=== PATIENT | male | born 1950 | race Two or more races ===

== ENCOUNTER 2024-06-08 22:05 | Inpatient (IN) | payer OTHER ==
[~2024-06-08] VITALS: Ht 175.3 cm; Wt 84.7 kg
[2024-06-08 23:02] LABS: Basophils # (auto) 0.1 10 ^3/uL (0-0.2); Basophils % (auto) 0.8 % (0.0-2.0); Eosinophils # (auto) 0.4 10 ^3/uL (0-0.8); Eosinophils % (auto) 4.8 % (0.0-7.0); Hematocrit 41.6 % (41.0-53.0); Hemoglobin 13.9 g/dL (13.5-17.5); Lymphocytes # (auto) 1.1 10 ^3/uL (0.4-5.4); Lymphocytes % (auto) 12.5 % (10.0-50.0); Mean Corpuscular Hemoglobin 30.9 pg (28.0-32.0); Mean Corpuscular Hgb Conc. 33.4 g/dL (32.0-36.0); Mean Corpuscular Volume 92.3 fL (80.0-100.0); Monocytes % (auto) 11.7 % (0.0-12.0); Neutrophils # (auto) 6.3 10 ^3/uL (1.6-8.6); Neutrophils % (auto) 70.2 % (37.0-80.0); Platelet Count (auto) 308 10^3/uL (140-450); Red Blood Cells 4.51 10^6/uL (4.5-5.90); Red Cell Distribution Width 14.4 % (11.8-14.3); White Blood Cell 8.9 10^3/uL (4.4-10.8)
[2024-06-08 23:17] LABS: INR 1.02 (0.9-1.15); Partial Thromboplastin Time 26.8 SEC (24.5-34.5); Prothrombin Time 10.8 sec (9.3-11.8)
[2024-06-08 23:19] LABS: Alanine Aminotransferase 21 U/L (7-40); Albumin 3.9 g/dL (3.2-4.8); Alkaline Phosphatase 63 U/L (46-116); Anion Gap 8 (5-15); Aspartate Aminotransferase 16 U/L (13-40); BUN/Creatinine Ratio 17.2 (10.0-20.0); Bilirubin, Total 0.3 mg/dL (0.2-1.0); Blood Urea Nitrogen 46 mg/dL (9-23); Calcium 9.2 mg/dL (8.7-10.4); Carbon Dioxide 22 mmol/L (20-31); Chloride 108 mmol/L (98-107); Glucose 223 mg/dL (74-106); Potassium 4.2 mmol/L (3.5-5.1); Sodium 138 mmol/L (136-145); Total Protein 6.5 g/dL (5.7-8.2)
[2024-06-08] MEDS: IOHEXOL 350 MG/ML 100ML IJ ONE (23:19)
[2024-06-08 23:30] VITALS: PULSE 66; RESP 25; O2SAT 97
[2024-06-09] VITALS (8 sets, daily range): BP systolic 111–152; BP diastolic 68–88; PULSE 64–96; RESP 17–19; TEMP 97.5–98.2; O2SAT 93–97
[2024-06-09] MEDS: CLINDAMYCIN 900MG IV 50 ML IV ONE (03:18)
[2024-06-09] MEDS ORDERED: ACETAMINOPHEN 325 MG TAB PO PRN (03:30)
[2024-06-09] MEDS ORDERED: ONDANSETRON HCL 4 MG/2 ML VIAL IV PRN (03:30)
[2024-06-09] MEDS ORDERED: DEXTROSE (50%) 50ML SYRG IV PRN (03:30)
[2024-06-09] MEDS ORDERED: MORPHINE SULFATE INJ 2 MG/ml SYRG IV PRN (03:30)
[2024-06-09] MEDS ORDERED: NITROGLYCERIN 0.4 MG SL TAB SL PRN (03:30)
[2024-06-09] MEDS ORDERED: TEMAZEPAM 15 MG CAP PO PRN (03:30)
[2024-06-09] MEDS: ACCU-CHEK COMFORT CURVE STRIP VI SCH (06:19)
[2024-06-09] MEDS: InsuLIN REG 1unit/0.01ml Soln (100units/ml) SC SCH (06:22)
[2024-06-09 09:50] LABS: Basophils # (auto) 0.1 10 ^3/uL (0-0.2); Basophils % (auto) 0.5 % (0.0-2.0); Eosinophils # (auto) 0.2 10 ^3/uL (0-0.8); Eosinophils % (auto) 2.1 % (0.0-7.0); Hematocrit 46.1 % (41.0-53.0); Hemoglobin 15.3 g/dL (13.5-17.5); Lymphocytes # (auto) 1.6 10 ^3/uL (0.4-5.4); Lymphocytes % (auto) 14.5 % (10.0-50.0); Mean Corpuscular Hemoglobin 30.7 pg (28.0-32.0); Mean Corpuscular Hgb Conc. 33.2 g/dL (32.0-36.0); Mean Corpuscular Volume 92.4 fL (80.0-100.0); Monocytes % (auto) 9.1 % (0.0-12.0); Neutrophils # (auto) 8.3 10 ^3/uL (1.6-8.6); Neutrophils % (auto) 73.8 % (37.0-80.0); Nucleated Red Blood Cells % 0.3 %; Platelet Count (auto) 317 10^3/uL (140-450); Red Blood Cells 4.98 10^6/uL (4.5-5.90); Red Cell Distribution Width 14.6 % (11.8-14.3); White Blood Cell 11.3 10^3/uL (4.4-10.8)
[2024-06-09 09:56] LABS: Chloride 106 mmol/L (98-107); Potassium 4.1 mmol/L (3.5-5.1); Sodium 139 mmol/L (136-145)
[2024-06-09 09:57] LABS: Anion Gap 6 (5-15); Calcium 9.9 mg/dL (8.7-10.4); Carbon Dioxide 27 mmol/L (20-31)
[2024-06-09 10:02] LABS: BUN/Creatinine Ratio 18.1 (10.0-20.0); Blood Urea Nitrogen 45 mg/dL (9-23); Glucose 177 mg/dL (74-106); Triglycerides 201 mg/dL (< 150)
[2024-06-09] MEDS ORDERED: GAB100C PO (10:02)
[2024-06-09] MEDS ORDERED: METO25TA93 PO (10:02)
[2024-06-09] MEDS ORDERED: BACL10TA PO (10:02)
[2024-06-09] MEDS ORDERED: METF-370 PO (10:02)
[2024-06-09 10:03] LABS: LDL Cholesterol 80 mg/dL (< 100)
[2024-06-09] MEDS ORDERED: ATOR40TA52 PO (10:03)
[2024-06-09] MEDS ORDERED: ASPI1TAB20 PO (10:03)
[2024-06-09 10:04] LABS: Cholesterol 153 mg/dL (< 200); HDL Cholesterol 45 mg/dL (40-59)
[2024-06-09] MEDS ORDERED: CIPR500T4 PO (10:04)
[2024-06-09] MEDS ORDERED: HYDR25TA5 PO (10:04)
[2024-06-09] MEDS ORDERED: CLOP75TA70 PO (10:04)
[2024-06-09] MEDS ORDERED: ROSU20TA56 PO (10:04)
[2024-06-09 10:31] LABS: Phosphorus 3.9 mg/dL (2.4-5.1)
[2024-06-09 10:36] LABS: INR 1.01 (0.9-1.15); Partial Thromboplastin Time 27.6 SEC (24.5-34.5); Prothrombin Time 10.7 sec (9.3-11.8)
[2024-06-09] MEDS: CLOPIDOGREL BISULFATE 75 MG TAB PO SCH (10:53)
[2024-06-09] MEDS: CIPROFLOXACIN HCL 500 MG TAB PO SCH (10:53)
[2024-06-09] MEDS: ASPirin 81 mg TAB PO SCH (10:53)
[2024-06-09] MEDS: hydroCHLOROthiazide 25 MG TAB PO SCH (10:54)
[2024-06-09] MEDS: METOPROLOL TARTRATE 25 MG TAB PO SCH (10:54)
[2024-06-09 12:44] LABS: Urine Bacteria None Seen /hpf (None Seen)
[2024-06-09 13:05] LABS: Urine Blood 1+ /uL (Negative); Urine Clarity Clear (Clear); Urine Color Light-Yellow (Yellow); Urine Protein, UAD 2+ (Negative); Urine Specific Gravity 1.034 (1.001-1.035); Urine Urobilinogen Normal (Negative); Urine WBC 95 /hpf (0 - 3)
[2024-06-09 13:16] LABS: Amphetamine Screen, Urine Pos (NEGATIVE); Barbiturate Scree,Urine Neg (NEGATIVE); Benzodiazephine Screen, Urine Neg (NEGATIVE); Cocaine Screen, Urine Neg (NEGATIVE)
[2024-06-09 13:18] LABS: Cannabinoid Screen, Urine Neg (NEGATIVE); Opiate Scree,Urine Neg (NEGATIVE); Phencyclidine Screen, Urine Neg (NEGATIVE)
[2024-06-09 13:31] LABS: Creatinine, Urine 80.41 mg/dL (30.0-125.0); Protein, Urine 126.2 mg/dL (1-14)
[2024-06-09 13:34] LABS: Creatinine, Urine 80.79 mg/dL (30.0-125.0); Urine Protein/Creatinine Ratio 1.56
[2024-06-09] MEDS: SODIUM CHLORIDE 0.9% 1,000 ML IV SCH (15:35)
[2024-06-09] MEDS: ATORVASTATIN 20 MG TAB PO SCH (21:06)
[2024-06-09] MEDS ORDERED: ATORVASTATIN 20 MG TAB PO SCH (22:00)
[2024-06-10 01:00] VITALS: BP 140/76; PULSE 69; RESP 18; TEMP 97.7; O2SAT 95
[2024-06-10 06:00] LABS: Chloride 107 mmol/L (98-107); Potassium 3.6 mmol/L (3.5-5.1); Sodium 140 mmol/L (136-145)
[2024-06-10 06:01] LABS: Anion Gap 5 (5-15); Calcium 9.7 mg/dL (8.7-10.4); Carbon Dioxide 28 mmol/L (20-31)
[2024-06-10 06:06] LABS: BUN/Creatinine Ratio 17.9 (10.0-20.0); Blood Urea Nitrogen 37 mg/dL (9-23); Glucose 183 mg/dL (74-106)
[2024-06-10 08:05] VITALS: PULSE 71
[2024-06-10 09:00] VITALS: BP 149/68; PULSE 62; RESP 17; TEMP 97.6; O2SAT 96
[2024-06-10 13:49] VITALS: BP 130/79; PULSE 96; RESP 18; TEMP 36.4; O2SAT 96
== END 2024-06-10 14:30 | disposition home or self-care (01) | DRG 917 ==
LOC: EDBD 22:05 → ER 22:05 → TELE 06-09 03:25 → TELE-E-ADS 06-09 05:45 → TELE-EAST 06-09 07:17
PROVIDERS: ADMIT Nurse Practitioner; ATTEND Nurse Practitioner Acute Care
DX: T40.411A Poisoning by fentanyl or fentanyl analogs, accidental (unintentional), initial encounter (principal); G92.8 Other toxic encephalopathy; N17.0 Acute kidney failure with tubular necrosis; N39.0 Urinary tract infection, site not specified; I69.354 Hemiplegia and hemiparesis following cerebral infarction affecting left non-dominant side; T43.621A Poisoning by amphetamines, accidental (unintentional), initial encounter; J32.9 Chronic sinusitis, unspecified; S00.03XA Contusion of scalp, initial encounter; W07.XXXA Fall from chair, initial encounter; E11.51 Type 2 diabetes mellitus with diabetic peripheral angiopathy without gangrene; I12.9 Hypertensive chronic kidney disease with stage 1 through stage 4 chronic kidney disease, or unspecified chronic kidney disease; E11.22 Type 2 diabetes mellitus with diabetic chronic kidney disease; I25.10 Atherosclerotic heart disease of native coronary artery without angina pectoris; N18.32 Chronic kidney disease, stage 3b; E11.65 Type 2 diabetes mellitus with hyperglycemia; Z95.1 Presence of aortocoronary bypass graft
CPT/HCPCS: 36415; 70450; 76775; 80048; 80053; 80061; 80307; 81001; 82140; 82306; 82570; 82607; 82962; 83036; 83605; 83735; 83880; 83970; 84100; 84156; 84300; 84443; 84484; 85025; 85610; 85730; 93005; 93306; 93886; 96365; 99291; G0378; J1815; J3490